=== PATIENT | male | born 1940 | race Caucasian/White ===

== ENCOUNTER 2025-02-12 10:59 | Outpatient (AMB) | payer MEDICARE, OTHER, SELFPAY ==
--- NOTE | 2025-02-12 11:09 | MHC.OFFVIS ---
Intake Visit Reasons: 1 YR f/u Allergies No Known Allergies Allergy (Verified 12/25/24 15:50) Medication List - Last Reconciled 02/12/25 by Iesha Vegas MD amlodipine 10 mg PO DAILY aspirin 81 mg PO DAILY atorvastatin (Lipitor) 40 mg PO DAILY carbamazepine 100 mg PO BID 90 days cholecalciferol (vitamin D3) 25 mcg PO DAILY metoprolol tartrate 50 mg PO BID HPI Comments Details: 85 yr old man with trigeminal neuralgia for annual f/u. Doing well with no further episodes of facial pain. Taking 100mg CBZ bid. No change in left lower lip numbness. No dizzziness, palpitation, presyncope. No after effects. ?Persistent numbness left lower chin is unchanged but no recurrence of trigeminal neuralgia. TN Pain first started in July 2010 and was quite excruciating with a level of steady pain with superimposed severe stabbing pains. ?Word finding difficulty, diplopia and dizziness have not recurred. 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 Has completed cardiac rehab. [facility] Medical History (Updated 02/12/25 @ 11:16 by Iesha Vegas MD) Hypertension Trigeminal neuralgia TIA (transient ischemic attack) Review of Systems Narrative Sleep:? Difficulty getting to sleep?denies.? Difficulty maintaining sleep?denies?.? Urge to move legs?denies.? Teeth grinding?denies.? Shouting or Kicking during sleep?denies.? Abnormal behavior during sleep?denies.? Excessive sleep?denies.? Snoring?denies.? Daytime sleepiness?denies.? ?? General/Constitutional:? Change in appetite?denies.? Chills?denies.? Fatigue?denies.? Fever?denies.? Weight gain?denies.? Weight loss?denies.? ?? Ophthalmologic:? Blurred vision?denies.? Diminished visual acuity?denies.? ?? ENT:? Stuffiness?denies.? Decreased hearing?denies.? Dry mouth?denies.? Ear pain?denies.? Nosebleed?denies.? Ringing in the ears?denies.? Sinus pain?denies.? Sore throat?denies.? Swollen glands?denies.? ?? Endocrine:? Cold intolerance?denies.? Excessive thirst?denies.? Frequent urination?denies.? Heat intolerance?denies.? ?? Respiratory:? Shortness of breath?denies.? Chest pain?denies.? Cough?denies.? ?? Breast:? Breast lump?denies.? Nipple discharge?denies.? ?? Cardiovascular:? Chest pain at rest?denies.? Chest pain with exertion?denies.? Claudication?denies.? Dizziness?denies.? Fluid accumulation in the legs?denies.? Irregular heartbeat?denies.? Palpitations?denies.? ?? Gastrointestinal:? Abdominal pain?denies.? Constipation?denies.? Diarrhea?denies.? Difficulty swallowing?denies.? Heartburn?denies.? Nausea?denies.? Rectal bleeding?denies.? ?? Hematology:? Easy bruising?denies.? Prolonged bleeding?denies.? ?? Genitourinary:? Frequent urination?denies.? Urgency?denies.? Incontinence?denies.? Erectile Dysfunction?denies.? ?? Musculoskeletal:? Neck pain?admits.? Back pain?denies.? Muscle aches?denies.? Painful joints?denies.? Sciatica?denies.? Weakness?denies.? ?? Podiatric:? Difficulty walking?denies.? Foot numbness?denies.? ?? Neurologic:? Difficulty swallowing?denies.? Balance difficulty?denies.? Coordination?normal.? Difficulty speaking?denies.? Dizziness?denies.? Fainting?denies.? Gait abnormality?denies.? Headache?admits.? Loss of strength?denies.? Loss of use of extremity?denies.? Low back pain?denies.? Memory loss?denies.? Seizures?denies.? Tics?denies.? Tingling/Numbness?denies.? Transient loss of vision?denies.? Tremor?denies.? ?? Psychiatric:? Anxiety?denies.? Auditory/visual hallucinations?denies.? Delusions?denies.? Depressed mood?denies.? Stressors?denies.? Substance abuse?denies.? Suicidal thoughts?denies.? ?? Physical Exam Neuro Other: General Examination: ? GENERAL APPEARANCE:?normal,?in no acute distress.? HEART:?S1, S2 normal,?no murmurs.? LUNGS:?clear anteriorly and posteriorly.? MUSCULOSKELETAL:?normal.? EXTREMITIES:?no edema.? PSYCH:?alert, oriented,?cognitive function intact,?cooperative with exam.? Neurological: ? Abnormal neurological findings:?left lower lip numbness.? Mental Status:?alert and oriented X 3,?Normal attention, orientation, memory and affect.? Cranial Nerves:?Pupils are equal, round and reactive to light. Fundoscopy shows normal disc bilaterally. External occular muscles are intact. Visual west are full, no ptosis. Face is symmetrical, no facial weakness or droop. Facial sensations are normal. Tongue protrudes in midline. Palate elevates symmetrically. Shoulder shrugging is normal..? Motor Examination:?Normal muscle tone, bulk and strength,?No atrophy or fasciculations,?No drift of the extended upper extremities,?Deep tendon reflexes are 2+?,?Plantars are flexor?.? Straight Leg Raising:?90 degrees.? Sensory Exam:?Normal light touch, temperature, pinprick, vibration and joint-position sensations?,?Rhomberg sign is absent.? Coordination:?no ataxia,?no titubation,?axdlen-wc-lzhk, qzzf-cals-taxi test and rapid alternating movements were normal.? Gait Exam:?Within normal limits.? Cerebellar Signs:?Twvyds-uu-pvjt and vsyx-ra-qlmd is normal,?no dysdiadochokinesia?.? Extrapyramidal System:?No tremor, rigidity with normal facial expressions,?No bradykinesia, no bradyphrenia. Normal arm swing and posture. No propulsion or retropulsion.? Speech:?Normal,?no dysphasia or dysarthria..? Assessment & Plan Assessment & Plan (1) Trigeminal neuralgia: Comment: Continue Carbamazepine 100mg bid Code(s): G50.0 - Trigeminal neuralgia Category: Medical (2) TIA (transient ischemic attack): Comment: 08/06/16 Carotid doppler showed no significant stenosis. Code(s): G45.9 - Transient cerebral ischemic attack, unspecified Category: Medical Plan continue current meds Medications: Refilled carbamazepine 100 mg PO BID 180 tabs 3RF 90 days Coding Level of Care Code Est Pt Level 4 (13744) Diagnoses Trigeminal neuralgia G50.0 TIA (transient ischemic attack) G45.9
--- OUTSIDE RECORDS SUMMARY | 2025-02-12 13:10 | XMS_ITS | Encounter Summary ---
Author Organization [facility] Address [address] [place] [address] Care Team Providers Care Molded Candles Wicker Name Role Phone Eleni Catalan MD Primary Care Provider [phone] Reason for Visit * Reason Onset Date Comments Results 01/18/2025 Encounter Details Date Type Department Care Team (Late st Contact Info) Description 01/18/2025 Results Follow-Up Internal Medicine - [facility] [address] [place] [address] Abigail Garcia DO [address] [place] [address] Social History Tobacco Use Types Packs/Day Years Used Date Smoking Tobacco: Former Cigarettes 21 0 04/04/1954 - 04/04/1975 Smokeless Tobacco: Never Alcohol Use Standard Drinks/Week Comments Not Currently 0 (1 standard drink = 0.6 oz pur e alcohol) Housing Instability Answer Date Recorde d Are you worried that in the next 2 months you may not have stable housing? No 06/21/2024 Food Access & Nutrition Answer Date Rec orded Do you have access to a vari ety of food including fruits and vegetables? Yes 06/21/2024 Access to Healthcare Answer Date Record ed Within the last 3 months, shaniqua parikh many times did you visit the emergency department for your medical care? 0 02/16/2024 Health Literacy Answer Date Recorded How often do you need to hav e someone help you when you read instructions, pamphlets, or other written material from your doctor or pharmacy? Never 02/16/2024 Caregiver: How often do you need to have someone help you when you read instructions, pamphlets, or other written material from your doctor or pharmacy? Not on file 02/16/2024 Financial Risk Answer Date Recorded How hard is it for you to pa y for the very basics like food, housing, medical care, and air conditioning / heating? Not very hard 06/21/2024 Transportation Answer Date Recorded Has the lack of transportati on kept you from meetings, work, or from getting things needed for daily living? No Has the lack of transportati on kept you from medical appointments or from getting medications? No 06/21/2024 Social Isolation Answer Date Recorded How often do you feel lonely or isolated from th ose around you? Never 06/21/2024 Food Risk Answer Date Recorded Within the past 12 months we worried whether our food would run out before we got money to buy more. Never true 06/21/2024 Within the past 12 months th e food we bought just didn't last and we didn't have money to get more. Never true 06/21/2024 Dependent Care Answer Date Recorded Do you need help finding or paying for care for your loved ones. For example, child caregiver or elderly care for an older adult? No 02/16/2024 Education Answer Date Recorded Do you think completing more education or training, like finishing a GED, going to college, or learning a trade, would be helpful for you? No 06/21/2024 Employment and Income Answer Date Recor ded During the last four weeks, have you been actively looking for work? No 06/21/2024 Living Situation Answer Date Recorded What is your living situation? Unrecognized valu e 06/21/2024 Sex and Gender Information Value Date Recorded Sex Assigned at Male 02/07/2024 6:04 PM EST Legal Sex Male 7:29 AM EST Gender Identity Male 02/07/2024 6:04 PM EST Sexual Orientation Straight 02/07/2024 6: 04 PM EST documented as of this encounter Progress Notes * Addy Rodrigues - 01/18/2025 1:57 PM EDT Pt returning call * Princess Good MA - 01/18/2025 1:47 PM EDT Lvm to return call forward to ext [phone] or A side * Princess Good MA - 01/18/2025 1:46 PM EDT ----- Message from Sophie Garcia DO sent at 01/18/2025 12:12 PM EDT ----- Please call patient. Xray without any signs of infection. It does show borderline enlarged heart, for this I recommend continued follow up with Cardiology. ----- Message ----- From: Interface, Incoming Ancillary Results - Imaging Results [id number] Sent: 01/18/2025 12:04 PM EDT To: Abigail Garcia DO documented in this encounter Plan of Treatment Upcoming Encounters Date Type Department Care Team (Late st Contact Info) Description 07/23/2025 10:30 AM EDT [facility] [address] [place], [place] [phone] Pema Rose, [address] [place] [address] documented as of this encounter Visit Diagnoses Not on filedocumented in this encounter Additional Health Concerns Infection Onset Date Last Indicated Resolved Time Respiratory Rule-Out 01/18/2025 01/18/2025 025 4:36 PM EDT COVID-19 Rule-Out 01/18/2025 01/18/2025 01/18/2025 4:36 PM EDT Assessment Noted Time PHQ-9 Depression Total Score: 0 02/16/20 6:11 PM EST documented as of this encounter Care Teams Molded Candles Wicker Relationship Specialty Start Date End Date Eleni Catalan MD [address] [place] [id number] PCP - General Internal Medicine 10/26/24 documented as of this encounter
--- OUTSIDE RECORDS SUMMARY | 2025-02-12 13:10 | XMS_ITS | Clinical Summary ---
Author Organization [facility] [address] [facility] Address [address] [facility] [place] Phone Care Team Providers Care Assistant Director Name Role Phone Eleni Catalan MD Primary Care Provider [phone] Allergies No known active allergies Medications cholecalcifer ol (VITAMIN D-3) 25 mcg (1,000 unit) tablet Take 1 tablet (1,000 Units total) by mouth 1 (one) time each day. 05/29/19 21 Active carBAMazepine (TEGretol) 200 mg tablet 1/2 am and 1/2 pm 08/12/19 18 Active aspirin 81 mg EC tablet Take 1 tablet (81 mg total) by mouth 1 (one) time each day. 30 tablet 11 05/01/19 25 026 Active metoprolol tartrate (LOPRESSOR) 50 mg tablet Take 1 tablet (50 mg total) by mouth 2 (two) times a day. 180 tablet 1 08/30/19 25 Active nitroglycerin (NITROSTAT) 0.[address] 1 tablet (0.4 mg total) under the tongue every 5 (five) minutes if needed for chest pain. Do not exceed 3 doses in 15 minutes 25 tablet 2 11/20/19 25 Active amLODIPine (NORVASC) 10 mg tablet TAKE 1 TABLET ONCE DAILY 90 tablet 12/26/19 25 Active atorvastatin (LIPITOR) 80 mg tablet Take 1 tablet (80 mg total) by mouth at bedtime. 90 tablet 3 01/23/20 25 Active cyanocobalami n (Vitamin B-12) 500 mcg tablet Take 1 tablet (500 mcg total) by mouth 1 (one) time each day. 90 each 3 01/23/20 25 026 Active atorvastatin (LIPITOR) 40 mg tablet TAKE 1 TABLET ONCE DAILY 90 tablet 12/26/19 25 025 Discontinued guaiFENesin (MUCINEX) 600 mg 12 hr tablet Take 2 tablets (1,200 mg total) by mouth 2 (two) times a day for 14 days. Do not crush, chew, or split. 56 each 01/19/20 25 025 Additional Information Patient not taking.Reported on 01/22/2025 atorvastatin (LIPITOR) 80 mg tablet Take 1 tablet (80 mg total) by mouth at bedtime. 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 He currently denies any chest pain, anginal symptoms, shortness of breath, exertional dyspnea. He is undergoing cardiac rehab. For now, he will continue his regimen of aspirin, atorvastatin, metoprolol, amlodipine. I called and spoke with cardiac surgery department and they confirmed that patient is currently on this regimen. I will reach out to our [facility] cardiology office regarding beta-raul use given his bradycardia but patient is asymptomatic. Stress hyperglycemia 07/05/2024 Acute blood loss anemia 07/05/2024 TERENCE (acute kidney injury) (CMS/HCC V24) 07/06/19 Pleural effusion on left 07/05/2024 Coronary artery disease invo lving [place] coronary artery of [place] heart without angina pectoris 05/07/2024 Assessment & Plan (11/26/2024 1:41 PM EDT): Patient had a cardiac catheterization on 05/22/2024 which revealed severe three- vessel coronary artery disease, 70% stenosis in the proximal LAD, 99% stenosis in the second diagonal, 70% stenosis in the OM3, 80% stenosis in the OM2, 60% stenosis in the OM1 and 100% stenosis in the proximal RCA. On 05/30/2024 patient underwent a three- vessel CABG with a BOWMAN to the mid LAD, SVG to the PDA and SVG to the OM. He denies anginal symptoms. No change to current medical therapy, continue amlodipine, aspirin, atorvastatin and metoprolol as prescribed. For any chest pain/discomfort, especially if associated with exertion, that lasts longer than 10-15 minutes and does not resolve with rest or sublingual nitroglycerin, patient has been encouraged to seek immediate medical attention by calling 911. Assessment & Plan (08/29/2024 5:03 PM EDT): Patient will continue current regimen of aspirin, atorvastatin, metoprolol and amlodipine. Blood pressure stable. He is scheduled echocardiogram and follow-up with cardiology already. He is undergoing cardiac rehab and doing well. Assessment & Plan (07/11/2024 2:14 PM EDT): Patient with a history of coronary artery disease status post three-vessel CABG with a BOWMAN to the mid LAD, SVG to the PDA and SVG to the OM. He will be starting cardiac rehab next week. He denies any signs or symptoms of coronary insufficiency. No changes to current medical therapy, continue with aspirin, amlodipine, atorvastatin, isosorbide and lisinopril as prescribed. No beta-raul due to baseline bradycardia. Patient is aware of when and how to use sublingual nitroglycerin. For any chest pain/discomfort, especially if associated with exertion, that lasts longer than 10-15 minutes and does not resolve with rest or sublingual nitroglycerin, patient has been encouraged to seek immediate medical attention by calling 911. Assessment & Plan (05/29/2024 1:54 PM EST): Patient is scheduled for CABG tomorrow. Wished him the best of luck. He will follow-up with Dr.Dr Saxena and her team. He has been given recommendations on what medications to be held by the cardiac surgeon. Will follow-up with him once he is discharged from the hospital. Assessment & Plan (05/07/2024 4:56 PM EST): He has new onset exertional angina and stress test showed ST depression at peak exercise and early recovery. Symptoms only happened with exertion such as walking. This has been lifestyle limiting and he has not done much of walking since then. His echocardiogram less than a year ago was overall unremarkable beside of mild dilated ascending aorta. I do not feel his necessary to do another exercise imaging stress test at this point. I will propose to do a cardiac catheterization to further assess coronary artery anatomy and possible intervention. I discussed with him in length about the procedure, risk and the benefit. I also provided him with a booklet. Will schedule the procedure within the next a few weeks. 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 Orders: Hemoglobin A1c; Future Ascending aorta dilatation ([facility] V24) 019 Overview (05/30/2023): 4.1 cm on echo (09/08/18) Assessment & Plan (11/26/2024 1:38 PM EDT): The aortic sinus measures 4.4 cm and ascending aorta 4.2 cm which is stable and unchanged when compared with prior echocardiogram from May 2023. Will continue to monitor with periodic echocardiograms. Assessment & Plan (07/11/2024 1:44 PM EDT): Ascending aorta measured 4.2 cm and the sinus of Valsalva measured 4.4 cm on most recent echocardiogram from May 2023. This has remained stable dating back to 2019. Will continue to monitor with serial echocardiograms. Assessment & Plan (02/18/2024 4:25 PM EST): He is up-to-date with his echocardiogram for his ascending aortic dilatation. Liver cyst 06/27/2018 Atypical mole 02/06/2018 Hypertension 06/02/2017 Assessment & Plan (11/26/2024 1:37 PM EDT): Blood pressure is under good control in the office today at 120/62. Continue metoprolol as prescribed. Assessment & Plan (07/24/2024 5:08 PM EDT): Follow low-sodium diet. Continue amlodipine and metoprolol for now. Will check his electrolytes. Orders: Basic metabolic panel; Future Assessment & Plan (07/11/2024 1:52 PM EDT): Blood pressure is controlled in the office today at 130/78. Continue amlodipine, isosorbide and lisinopril as prescribed. Assessment & Plan (05/07/2024 4:56 PM EST): His blood pressure is higher. He states that his blood pressure tend to be high in a physician's office but sometimes high at home as well. I will increase lisinopril to 30 mg a daily. Assessment & Plan (05/01/2024 2:24 PM EST): Blood pressure on recheck was okay. Follow low-sodium diet. Continue current regimen of amlodipine, lisinopril and isosorbide mononitrate. Assessment & Plan (02/18/2024 4:25 PM EST): For now, his blood pressure is okay. Follow sodium diet. Continue amlodipine, lisinopril. LVH (left ventricular hypertrophy) 06/02/2017 Overview (05/30/2023): On EKG dated 06/22/13 Vitamin D deficiency 06/02/2017 Hyperlipidemia 06/02/2017 Assessment & Plan (11/26/2024 1:43 PM EDT): Last lipid panel reviewed, total cholesterol 156, LDL 74 which is at near goal of less than 70. Patient will continue with efforts to follow a low fat, heart healthy diet, increase exercise and maintain a healthy weight to maximize risk reduction. Assessment & Plan (07/11/2024 1:46 PM EDT): Most recent lipid panel reviewed, LDL 71, goal <70. Pravastatin switched to atorvastatin after CABG. Will update lipid panel and make further adjustments as needed. Assessment & Plan (05/07/2024 4:56 PM EST): Will continue pravastatin at current dose and make adjustment after cardiac catheterization. Assessment & Plan (02/18/2024 4:25 PM EST): Follow cholesterol diet and continue simvastatin. Orders: Lipid panel; Future Kidney stones 06/02/2017 Overview (05/30/2023): Last Assessment & Plan: Multiple episodes BPH (benign prostatic hyperplasia) 06/02/2017 Overview (05/30/2023): TURP Trigeminal neuralgia 06/02/2017 Overview (05/30/2023): Dr Vegas Cataract 06/02/2017 Overview (05/30/2023): Dr Beverly Moralez . Surgery 05/08/15 History of carpal tunnel repair 06/02/2017 Encounters Date Type Department Care Team Description 01/22/2025 1:00 PM EDT Office Visit [facility] - [facility] [address] [place] [place], [place] [phone] Eleni Catalan MD Coronary artery disease involving [place] coronary artery of [place] heart with angina pectoris (CMS/HCC V24) (Primary Dx); Primary hypertension; Ascending aorta dilatation (CMS/HCC V24); Hyperlipidemia, unspecified hyperlipidemia type; Prediabetes; Trigeminal neuralgia 01/18/2025 11:31 AM EDT - 01/18/2025 11:59 PM EDT Hospital Encounter [facility] [address] [place], [place] [address] [phone] Cough, unspecified type Discharge Disposition: Home or Self Care 01/18/2025 11:00 AM EDT [facility] [address] [place] [phone] Abigail Garcia DO Cough, unspecified type (Primary Dx); Upper respiratory tract infection, unspecified type; Viral upper respiratory tract infection 01/18/2025 Telephone [facility] - [address] [place] [phone] Ayde Muse MD 01/18/2025 Results [facility] [address] [place] [phone] Abigail Garcia DO 11/26/2024 1:10 PM EDT Office Visit [facility] - [address] [place] [phone] Whit Spear NP Primary hypertension (Primary Dx); Ascending aorta dilatation (CMS/HCC V24); Coronary artery disease involving [place] coronary artery of [place] heart without angina pectoris; Hyperlipidemia, unspecified hyperlipidemia type 11/19/2024 Telephone [facility] - [address] [place] [phone] Ayde Muse MD from Last 3 Months Immunizations Immunization Administration Dates Next Due Influenza trivalent, 0.5mL ( Fluzone High-dose) 65yo and older 12/30/2020,12/20/2019,02/28/2019,12/28 Pneumococcal conjugate 13 va lent (Prevnar 13, PCV13) 2mo and older 05/10/2019 Pneumococcal polysaccharide 23 valent (Pneumovax 23) 2yo and older 01/15/2016 Td Tetanus diptheria (Tdvax) 7yo and older 12/28/2017 Surgical History Surgery Date Site/Laterality Comments COLONOSCOPY PROCEDURE: HISTORICAL COLONOSCOPY; COMMENT: 01/15/16 notes last done - 15 years ago TURP / TRANSURETHRAL INCISIO N / DRAINAGE PROSTATE 2006 PROCEDURE: HISTORICAL TURP CARPAL TUNNEL RELEASE Right PROCEDURE: HISTORICAL CARPAL TUNNEL REL CATARACT EXTRACTION 05/08/2015 PROCEDURE: HISTORICAL CATARACT REMOVAL OTHER SURGICAL HISTORY PROCEDURE: HISTORY OTHER; COMMENT: Stem cell donor HAND SURGERY 2006 Left PROCEDURE: HISTORICAL HAND SURGERY; COMMENT: 3 procedures CORONARY ARTERY BYPASS GRAFT DONE [place] [facility] [place]/ EVANGELINA VILLATORO MD on 05/30/24. CARDIAC CATHETERIZATION DONE ON 05/22/2024 AT [facility] [place] [facility] INDICATION:TILLMAN AND ABNORMAL TREADMILL STUDY Medical History Medical History Date Comments BPH (benign prostatic hyperplasia) 06/02/2017 DX:BPH (benign prostatic hyperplasia); COMMENT: TURP H/O carpal tunnel repair 06/02/2017 DX:H/O carpal tunnel repair Kidney stones 06/02/2017 DX:Kidney stones Vitamin D deficiency 06/02/2017 DX:Vitamin D deficiency Cataract 06/02/2017 DX:Cataract; COM MENT: Dr Beverly Moralez . 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 Family History Medical History Relation Name Comments Other: Other Father age 79 Hypertension Mother lung ca age 82 Leukemia Sister 1 Stem cell trans plant, Mr Neno was donor Breast cancer Sister 2 Other: Kidney Stents Son Relation Name Status Comments Father Mother Sister 1 Sister 2 Son Social History Tobacco Use Types Packs/Day Years Used Date Smoking Tobacco: Former Cigarettes 21 0 04/04/1954 - 04/04/1975 Smokeless Tobacco: Never Tobacco Cessation:Counseling Given: No Alcohol Use Standard Drinks/Week Comments Not Currently [...] Record ed Within the last 3 months, ho w many times did you visit the emergency [...] for your loved ones. For example, child welfare counselor or elderly care for an older adult? [...] Orientation Straight 02/07/2024 6: 04 PM EST Obstetrics History Last Filed Vital Signs Vital Sign Reading Time Taken Comments Blood Pressure 135/46 01/22/2025 12:58 PM EDT au to Pulse 58 01/22/2025 12:58 PM EDT Temperature 36.3 C (97.4 F) 01/18/2025 11:03 AM EDT Respiratory Rate - - Oxygen Saturation 98% 11/26/2024 1:01 PM EDT Inhaled Oxygen Concentration - - Weight 64.5 kg (142 lb 1.6 oz) 01/22/2025 12:58 PM EDT Height 167.6 cm (5' 6 ) 01/22/2025 12:58 PM EDT Body Mass Index 22.94 01/22/2025 12:58 PM EDT Plan of Treatment Upcoming Encounters Date Type Department Care Team (Late st Contact Info) Description 07/23/2025 10:30 AM EDT [facility] [address] [place], [place] [phone] Pema Rose NP [address] [place] [id number] Health Maintenance Due Date Last Done Comments Hepatitis A Vaccines (1 of 2 - Risk 2-dose series) 1961 Zoster Vaccines (1 of 2) 02/10/1992 Hepatitis B Vaccines (1 of 3 - Risk 3-dose series) 2002 RSV Immunization Adult Patients (1 - 1-dose 75+ series) 2017 Medicare Annual Wellness Visit 10/30/2024 10/31/2023 COVID-19 Vaccine ( season) 2024 07/05/2020, 06/14/2020 Influenza Vaccine (#1) 2024 , 12/20/2019, 02/28/2019, Additional history exists Falls Risk Assessment 05/29/2025 05/29/2024 Social Influencers of Health Screening 06/21/2025 06/21/2024 Hypertension/CHF/CAD Annual BMP Blood Test 07/24/2025 07/24/2024, 02/17/2024, 11/25/2023, Additional history exists DTaP,Tdap,and Td Vaccines (2 - Td or Tdap) 12/29/2027 12/28/2017 Cholesterol Screening (Lipid Panel) 07/24/2029 07/24/2024, 02/17/2024, 11/18/2022 Pneumococcal Vaccine: 50+ Years Completed 05/10/2019, 01/15/2016 Depression Screening Completed 05/25/2024, 10/31/19 24 HIB Vaccines Aged Out No longer eligi ble based on patient's age to complete this topic HPV Vaccines Aged Out No longer eligi ble based on patient's age to complete this topic IPV Vaccines Aged Out No longer eligi ble based on patient's age to complete this topic MMR Vaccines Aged Out No longer eligi ble based on patient's age to complete this topic Meningococcal ACWY Vaccine Aged Out N o longer eligible based on patient's age to complete this topic Meningococcal B Vaccine Aged Out No l onger eligible based on patient's age to complete this topic RSV Immunization Patients Under 20 months Aged Out No longer eligible based on patient's age to complete this topic Varicella Vaccines Aged Out No longer eligible based on patient's age to complete this topic Procedures Procedure Name Priority Date/Time Associated Diagnosis Comments XR CHEST 2 VIEWS Routine 01/18/2025 11:3 7 AM EDT Cough, unspecified type [id number], RSV, FLU A AND B QUALITATIVE RT-PCR, LOCAL REFERENCE LAB Routine 01/18/2025 11:36 AM EDT Viral upper respiratory tract infection BASIC METABOLIC PANEL Routine 07/24/2024 2:29 PM EDT Primary hypertension LIPID PANEL WITH REFLEX TO DIRECT LDL Routine 07/24/2024 2:29 PM EDT Hyperlipidemia, unspecified hyperlipidemia type HM DEPRESSION SCREENING Routine 10/31/2023 from Last 3 Months or Most Recently Relevant to Health Maintenance Results * XR Chest 2 Views (01/18/2025 11:37 AM EDT) Anatomical Region Laterality Modality Body Radiographic Lorrie ging 01/18/2025 11:5 4 AM EDT Impressions 01/18/2025 11:59 AM EDT No acute pulmonary pathology. Borderline cardiomegaly. -------- FINAL REPORT -------- Dictated By: Lise Aguillon Dictated Date: 01/18/2025 11:54 ET Assigned Physician: Lise Aguillon Reviewed and Electronically Signed By: Lise Aguillon Signed Date: 01/18/2025 11:59 ET Workstation ID: [id number] Transcribed By: Self Edit Transcribed Date: 01/18/2025 11:54 ET Narrative 01/18/2025 11:59 AM EDT CHEST, TWO VIEWS HISTORY: Cough. TECHNIQUE: Frontal and lateral views of the chest. PRIOR: Chest x-ray 02/21/2024. FINDINGS: The lungs are clear. No pleural effusion is seen. No pneumothorax is seen. The cardiac diameter remains borderline enlarged. No acute or aggressive appearing bony abnormalities are seen. There is degenerative change of the spine and shoulders. Median sternotomy wire sutures, sternal plates and CABG clips are noted, and these are new since the previous study. Procedure Note Lise Aguillon MD - 01/18/2025 CHEST, TWO VIEWS HISTORY: Cough. TECHNIQUE: Frontal and lateral views of the chest. PRIOR: Chest x-ray 02/21/2024. FINDINGS: The lungs are clear. No pleural effusion is seen. No pneumothorax is seen. The cardiac diameter remains borderline enlarged. No acute or aggressive appearing bony abnormalities are seen. There isdegenerative change of the spine and shoulders. Median sternotomy wire sutures, sternal plates and CABG clips are noted,and these are new since the previous study. IMPRESSION: No acute pulmonary pathology. Borderline cardiomegaly. -------- FINAL REPORT -------- Dictated By: Lise Aguillon Dictated Date: 01/18/2025 11:54 ET Assigned Physician: Lise Aguillon Reviewed and Electronically Signed By: Lise Aguillon Signed Date: 01/18/2025 11:59 ET Workstation ID: [id number] Transcribed By: Self Edit Transcribed Date: 01/18/2025 11:54 ET us Abigail Thapatoi DO IMG XR PROCEDURES Final Result * [id number], RSV, Influenza A and B qualitative RT-PCR (01/18/2025 11:36 AM EDT) Pathologist [facility] SARS COV-2 Not Detected Not Detected LAB MOLECULAR DIAGNOSTICS METHOD 01/18/2025 4:[address] [facility] Comment: Disclaimer: The manner in which this information is used to guide patient care is the responsibility of the healthcare provider. Testing was performed using the [employer] m SARS-CoV-2 test. This test has been authorized by FDA under an Emergency Use Authorization (EUA). This test is only authorized for the duration of time the declaration that circumstances exist justifying the authorization of the emergency use of in vitro diagnostic tests for detection of SARS-CoV-2 virus and/or diagnosis of COVID-19 infection under section 564(b)(1) of the Act, 21 U.S.C. 360bbb- 3(b)(1), unless the authorization is terminated or revoked sooner. Fact sheet for Healthcare Providers can be found at: https://www.fda.gov/media/727511/download Fact sheet for Patients can be found at: https://www.fda.gov/media/593995/download Influenza A PCR Not Detected Not Detected LAB MOLECULAR DIAGNOSTICS METHOD 01/18/2025 4:[address] [facility] Influenza B PCR Not Detected Not Detected LAB MOLECULAR DIAGNOSTICS METHOD 01/18/2025 4:[address] [facility] RSV PCR Not Detected Not Detected LAB MOLECULAR DIAGNOSTICS METHOD 01/18/2025 4:[address] [facility] Swab Nasopharyngeal structure / Unknown Non-blood Collection / Unknown 01/18/2025 11:36 AM EDT 01/18/2025 11:36 AM EDT Abigail Garcia DO LAB MICROBIOLOGY - GENERAL ORD ERABLES Final Result [facility] [address] [place] [address], [place] [phone] * Lipid panel with reflex to direct LDL (07/24/2024 2:29 PM EDT) Cholesterol 156 0 - 200 mg/dL LAB CHEMISTRY METHOD 07/24/2024 5:[address] [facility] Triglycerides 73 0 - 150 mg/dL LAB CHEMISTRY METHOD 07/24/2024 5:[address] [facility] HDL 67 >=40 mg/dL LAB CHEMISTRY METHOD 07/24/2024 5:[address] [facility] LDL Calculated 74 0 - 100 mg/dL LAB CHE[facility]STRY [facility] VLDL Cholesterol Luisito 14.6 mg/dL LAB CHEMISTRY METHOD 07/24/2024 5:[address] [facility] Non HDL Chol. (LDL+VLDL) 89 <145 mg/dL LAB CHEMISTRY METHOD 07/24/2024 5:[address] [facility] Chol/HDL Ratio 2.3 0.0 - 4.4 LAB CHEMISTRY METHOD 07/24/2024 5:47 PM [facility] Blood Venous blood specimen / Unknown Venipuncture / Unknown 07/24/2024 2:29 PM EDT 07/24/2024 2:29 PM EDT us Ayde Muse MD LAB BLOOD ORDERABLES Final Resul t [facility] [address] [place] [address], * Basic metabolic panel (07/24/2024 2:29 PM EDT) Sodium 145 133 - 145 mmol/L LAB CHEMISTRY METHOD 07/24/2024 5:19 PM [facility] Potassium 3.9 3.5 - 5.5 mmol/L LAB CHEMISTRY METHOD 07/24/2024 5:19 PM [facility] Chloride 109 96 - 110 mmol/L LAB CHEMISTRY METHOD 07/24/2024 5:19 PM [facility] CO2 30 21 - 32 mmol/L LAB CHEMISTRY METHOD 07/24/2024 5:19 PM [facility] Anion Gap 6 3 - 11 LAB CHEMISTRY METHOD 07/24/2024 5:19 PM [facility] Glucose 86 70 - 100 mg/dL LAB CHEMISTRY METHOD 07/24/2024 5:19 PM [facility] BUN 16 5 - 25 mg/dL LAB CHEMISTRY METHOD 07/24/2024 5:19 PM [facility] Creatinine 0.84 0.70 - 1.30 mg/dL LAB CHEMISTRY METHOD 07/24/2024 5:19 PM [facility] eGFR 87 >=60 mL/min/1. 73m2 LAB CHEMISTRY METHOD 07/24/2024 5:19 PM [facility] Comment:Calculation based on the Chronic Kidney Disease Epidemiology Collaboration (CKD-EPI) equation refit without adjustment for race. BUN/Creatinine Ratio 19.0 LAB CHEMISTRY METHOD 07/24/2024 5:19 PM [facility] Calcium 8.7 8.5 - 10.5 mg/dL LAB CHEMISTRY METHOD 07/24/2024 5:[address] [facility] Blood Venous blood specimen / Unknown Venipuncture / Unknown 07/24/2024 2:29 PM EDT 07/24/2024 2:29 PM EDT Eben Shannon MD LAB BLOOD ORDERABLES Winsome l Result [facility] [address] [place] [address], * Depression Screening (10/31/2023) Depression Screening abstracted us Historical Provider HEALTH MAINTENANCE Final Result from Last 3 Months or Most Recently Relevant to Health Maintenance Insurance MEDICARE [facility] Care Teams Assistant Director Relationship Specialty Start Date End Date Eleni Catalan MD [address] [place], [place] PCP - General Internal Medicine 10/26/24
== END 2025-02-12 11:24 | disposition home or self-care (01) ==
LOC: HO.HSM 11:00
PROVIDERS: PCP Internal Medicine; Referring Provider Internal Medicine; Visit Provider Psychiatry & Neurology Neurology
DX: G50.0 Trigeminal neuralgia (principal); G45.9 Transient cerebral ischemic attack, unspecified
CPT/HCPCS: 99214

== ENCOUNTER → 2025-02-12 10:59 | Outpatient (BNVA) | payer MEDICARE, OTHER, SELFPAY | PROVIDERS: PCP Internal Medicine; Referring Provider Internal Medicine; Visit Provider Psychiatry & Neurology Neurology | DX: G50.0 Trigeminal neuralgia (principal); I10 Essential (primary) hypertension; G45.9 Transient cerebral ischemic attack, unspecified; Z79.82 Long term (current) use of aspirin | CPT/HCPCS: 99212 ==